=== PATIENT | male | born 1955 | race Caucasian/White ===

== ENCOUNTER 2020-01-15 12:33 | Emergency (ER) | payer MEDICARE, MEDICAID ==
[~2020-01-15] VITALS: Ht 175.3 cm; Wt 81.8 kg
[~2020-01-15 12:33] MED LIST: CLON-528 PO; LISI-600 PO; METH-603 PO; MULT-1085 PO; NITR0.4T51 SL; NO HOME MEDS; VITA1CAP62 PO
[2020-01-15] MEDS ORDERED: ALBU8.5H8 IH (13:34)
[2020-01-15] MEDS ORDERED: AZIT250T83 PO (13:34)
[2020-01-15] MEDS ORDERED: PRED20TA PO (13:34)
[2020-01-15 14:01] VITALS: BP 121/64
== END 2020-01-15 14:03 | disposition home or self-care (01) ==
LOC: ER 12:33
DX: J20.9 Acute bronchitis, unspecified (principal); G89.29 Other chronic pain; F41.9 Anxiety disorder, unspecified; Z87.891 Personal history of nicotine dependence; Z88.0 Allergy status to penicillin; Z79.2 Long term (current) use of antibiotics; Z79.899 Other long term (current) drug therapy
CPT/HCPCS: 99283

== ENCOUNTER 2020-02-14 23:02 | Emergency (ER) | payer MEDICARE, MEDICAID ==
[~2020-02-14] VITALS: Ht 175.3 cm; Wt 81.8 kg
[~2020-02-14 23:02] MED LIST changes: +AZI25OT PO; -CLON-528 PO; +FURO-150 PO; +METH4TAB81 PO; -NITR0.4T51 SL; -NO HOME MEDS; -VITA1CAP62 PO; +folic acid tablet PO; +thiamine tablet PO
[2020-02-14 23:04] VITALS: BP 160/87
[2020-02-14] MEDS ORDERED: ketorolac tromethamine 15mg/ml inj. IM ONE (23:50)
[2020-02-14] MEDS ORDERED: orphenadrine citrate 60mg/2ml inj. IM ONE (23:50)
[2020-02-14] MEDS ORDERED: IBUP-1984 PO (23:59)
[2020-02-14] MEDS ORDERED: CYCL-1 PO (23:59)
== END 2020-02-15 00:10 | disposition home or self-care (01) ==
LOC: ER 23:02
DX: G89.29 Other chronic pain (principal); M54.9 Dorsalgia, unspecified; M54.2 Cervicalgia; I10 Essential (primary) hypertension; F41.9 Anxiety disorder, unspecified; Z98.890 Other specified postprocedural states; Z59.0 Homelessness; Z88.0 Allergy status to penicillin; Z79.2 Long term (current) use of antibiotics; Z79.899 Other long term (current) drug therapy
CPT/HCPCS: 96372; 99284; J1885; J2360

== ENCOUNTER 2020-06-17 21:12 | Inpatient (IN) | payer MEDICARE, MEDICAID ==
[~2020-06-17] VITALS: Ht 172.7 cm; Wt 101.9 kg
[~2020-06-17 21:12] MED LIST changes: +CYCL-1 PO; +calcium chloride 100 MG/1 ML inj IV ONE; +epiNEPHrine 0.1mg/ml 10ml syringe ONE; +etomidate 2mg/ml inj. ONE; +rocuronium 10mg/ml inj IV ONE; +sodium bicarbonate (8.4%) 1 mEq/ml syringe ONE
[2020-06-17] MEDS ORDERED: ondansetron/PF 4mg/2ml inj IV ONE (21:50)
[2020-06-17] MEDS ORDERED: morphine 4 MG/ML inj SYRINge IV ONE ×2 (21:50→22:25)
[2020-06-17 22:10] LABS: BASOPHILS % (AUTO) 0.1 % (0-1); EOSINOPHILS % (AUTO) 0 % (0-6); HEMATOCRIT 44.9 % (42.0-52.0); HEMOGLOBIN 14.9 g/dl (14.0-17.9); LYMPHOCYTES # (AUTO) 0.7 X10'3 (1.1-4.8); LYMPHOCYTES % (AUTO) 2.5 % (21-51); MEAN CORPUSCULAR HEMOGLOBIN 33.5 PG (27.0-31.0); MEAN CORPUSCULAR HGB CONC 33.3 g/dL (33.0-36.5); MEAN CORPUSCULAR VOLUME 100.8 FL (78-98); MEAN PLATELET VOLUME 8.6 FL (7.4-10.4); MONOCYTES # (AUTO) 1.4 X10'3 (0-0.9); MONOCYTES % (AUTO) 5.6 % (2-12); NEUTROPHILS # (AUTO) 23.6 X10'3 (1.8-7.7); NEUTROPHILS % (AUTO) 91.8 % (42-75); PLATELET COUNT 225 X10'3 (140-440); RED BLOOD COUNT 4.46 X10'6 (4.70-6.10); RED CELL DISTRIBUTION WIDTH 14.5 % (11.5-14.5)
[2020-06-17 22:12] LABS: WHITE BLOOD COUNT 25.7 X10'3 (4.5-11.0)
[2020-06-17] MEDS ORDERED: CefTRIAXone/D5W-Rocephin 1gm 50 ML IV ONE (22:25)
[2020-06-17] MEDS ORDERED: normal saline 1000ML IV soln IVB ONE (22:25)
[2020-06-17] MEDS ORDERED: vancomycin/NS 1 GM ADD-VANTAGE 250 ML IV ONE (22:25)
[2020-06-17 22:26] LABS: ALANINE AMINOTRANSFERASE 22 U/L (12-78); ALBUMIN/GLOBULIN RATIO 0.6 (1.1-1.5); ALKALINE PHOSPHATASE 94 IU/L (46-116); ANION GAP 8 (8-16); ASPARTATE AMINO TRANSFERASE 28 U/L (10-37); BILIRUBIN,TOTAL 1.3 MG/DL (0.1-1.0); BLOOD UREA NITROGEN 18 MG/DL (7-18); BUN/CREATININE RATIO 13.2 (5.4-32.0); CALCIUM 9.3 MG/DL (8.5-10.1); CHLORIDE 89 MMOL/L (99-107); CREATININE 1.36 MG/DL (0.60-1.10); GLUCOSE 104 MG/DL (70-104); POTASSIUM 3.7 MMOL/L (3.5-5.1); SODIUM 127 MMOL/L (135-145); TOTAL CARBON DIOXIDE 30.5 MMOL/L (24-32); TOTAL PROTEIN 7.9 G/DL (6.4-8.2); eGFR 52 ML/MIN
[2020-06-17 22:42] LABS: TOTAL CELLS COUNTED 100
[2020-06-17 22:43] LABS: LIPASE 680 U/L (73-393); PLATELET ESTIMATE NORMAL
[2020-06-17] MEDS ORDERED: fentaNYL/PF 50MCG/1 ML 2ML syringe IV ONE (23:10)
--- NOTE | 2020-06-17 23:23 | NUR ---
PT REMAINS IN SEVERE PAIN, JUST GIVEN FENTANYL 100 MCG IV.
--- NOTE | 2020-06-17 23:42 | NUR ---
Pt stood at bedside to attempt to void and unsuccesful.
[2020-06-18] VITALS (8 sets, daily range): BP systolic 152–188; BP diastolic 90–118
[2020-06-18] MEDS ORDERED: HYDROmorphone 1 mg/ml syringe IV PRN
[2020-06-18] MEDS ORDERED: HYDROmorphone inj. 0.5 MG/0.5 ML DISP.SYRIN IV PRN
[2020-06-18] MEDS ORDERED: potassium Cl 20 mEq SR tablet PO PRN
[2020-06-18] MEDS ORDERED: mag hydrox/Alum hydrox/simeth 30ml oral suspension PO PRN
[2020-06-18] MEDS ORDERED: magnesium 2GM in 50ml NS 50 ML IV PRN
[2020-06-18] MEDS ORDERED: acetaminophen 325mg tablet PO PRN ×2
[2020-06-18] MEDS ORDERED: magnesium 4gm in 100ml NS 100 ML IV PRN
[2020-06-18] MEDS ORDERED: magnesium hydroxide 30ml (MOM) UD suspension PO PRN
[2020-06-18] MEDS ORDERED: metoclopramide 5 mg/ml inj IV PRN
[2020-06-18] MEDS ORDERED: potassium CL 10mEq/100ml bag 100 ML IV PRN ×2
[2020-06-18] MEDS ORDERED: magnesium Cl slow-release 64mg tablet PO PRN
[2020-06-18] MEDS ORDERED: HYDROcodone/acetaminophen 10/325mg tab PO PRN
[2020-06-18] MEDS ORDERED: bisacodyl 10mg suppository rectal RC PRN
[2020-06-18] MEDS ORDERED: HYDROcodone/acetaminophen 5mg/325mg tablet PO PRN
[2020-06-18] MEDS ORDERED: METH5TAB PO (00:55)
[2020-06-18] MEDS ORDERED: FLO0.4C PO (00:55)
[2020-06-18] MEDS ORDERED: [UNRECOGNIZED DRUG - OTHER] IV ONE (01:00)
[2020-06-18] MEDS ORDERED: VANCOMYCIN IV ONE (01:00)
[2020-06-18] MEDS ORDERED: SODIUM CHLORIDE IV ONE (01:00)
--- NOTE | 2020-06-18 01:07 | NUR ---
Received report from Shira CHISHOLM from the ED. Patient arrived on unit in a wheel chair, saline locked, room air, a/o, vss, no signs of distress will continue to monitor
[2020-06-18 01:20] LABS: HEMOGLOBIN A1C 5.6 % (4.5-6.2)
[2020-06-18] MEDS ORDERED: CADD PCA waste documentation MC PRN (01:50)
[2020-06-18] MEDS ORDERED: naloxone 0.4 mg/ml inj IV PRN (01:50)
[2020-06-18] MEDS: normal saline 1000ml 1,000 ML IV SCH ×3 (01:53→21:26)
[2020-06-18] MEDS: HYDROmorphone/NS 1 mg/ml CADD 50 ML IV SCH ×12 (02:37→23:00)
[2020-06-18 05:58] LABS: BASOPHILS % (AUTO) 0.1 % (0-1); EOSINOPHILS % (AUTO) 0 % (0-6); HEMATOCRIT 40.5 % (42.0-52.0); HEMOGLOBIN 13.4 g/dl (14.0-17.9); LYMPHOCYTES # (AUTO) 0.6 X10'3 (1.1-4.8); LYMPHOCYTES % (AUTO) 2.9 % (21-51); MEAN CORPUSCULAR HEMOGLOBIN 33.9 PG (27.0-31.0); MEAN CORPUSCULAR HGB CONC 33.2 g/dL (33.0-36.5); MEAN PLATELET VOLUME 9.2 FL (7.4-10.4); MONOCYTES # (AUTO) 1.6 X10'3 (0-0.9); NEUTROPHILS # (AUTO) 20.1 X10'3 (1.8-7.7); PLATELET COUNT 170 X10'3 (140-440); RED BLOOD COUNT 3.97 X10'6 (4.70-6.10); RED CELL DISTRIBUTION WIDTH 14.9 % (11.5-14.5); WHITE BLOOD COUNT 22.4 X10'3 (4.5-11.0)
[2020-06-18 06:07] LABS: ALANINE AMINOTRANSFERASE 16 U/L (12-78); ALBUMIN 2.5 G/DL (3.4-5.0); ALBUMIN/GLOBULIN RATIO 0.6 (1.1-1.5); ALKALINE PHOSPHATASE 77 IU/L (46-116); ANION GAP 5 (8-16); ASPARTATE AMINO TRANSFERASE 23 U/L (10-37); BILIRUBIN,TOTAL 0.8 MG/DL (0.1-1.0); BLOOD UREA NITROGEN 16 MG/DL (7-18); BUN/CREATININE RATIO 15.5 (5.4-32.0); CALCIUM 8.1 MG/DL (8.5-10.1); CHLORIDE 98 MMOL/L (99-107); CREATININE 1.03 MG/DL (0.60-1.10); GLUCOSE 68 MG/DL (70-104); POTASSIUM 4.5 MMOL/L (3.5-5.1); SODIUM 133 MMOL/L (135-145); TOTAL CARBON DIOXIDE 29.8 MMOL/L (24-32); TOTAL PROTEIN 6.5 G/DL (6.4-8.2); eGFR 72 ML/MIN
[2020-06-18 06:08] LABS: CHOL/HDL RATIO 1.5 (0.00-4.99); CHOLESTEROL 133 MG/DL (0-200); HDL CHOLESTEROL 86 MG/DL (35-60); LDL CHOLESTEROL 31 MG/DL (50-100); MAGNESIUM 1.6 MG/DL (1.5-2.4); PHOSPHORUS 2.7 MG/DL (2.3-4.5); TRIGLYCERIDES 31 MG/DL (20-135)
--- NOTE | 2020-06-18 06:41 | NUR ---
Patient in room [facility] 346. I have received report from PHAN Mccullough and had the opportunity to ask questions and assume patient care.
--- NOTE | 2020-06-18 06:43 | NUR ---
Problems reprioritized. Patient report given, questions answered & plan of care reviewed with Libby CHISHOLM.
[2020-06-18] MEDS: lisinopril 20mg tablet PO SCH (07:21)
[2020-06-18] MEDS: tamsulosin 0.4mg capsule PO SCH (07:21)
[2020-06-18] MEDS: methadone 10mg tablet PO SCH ×2 (07:22→22:21)
[2020-06-18] MEDS: CefTRIAXone/D5W-Rocephin 1gm 50 ML IV SCH (07:25)
[2020-06-18] MEDS: ondansetron/PF 4mg/2ml inj IV PRN (07:30)
[2020-06-18] MEDS: enoxaparin 40mg/0.4ml syringe SUBCUT SCH (07:33)
[2020-06-18] MEDS ORDERED: methadone 10mg tablet PO SCH (08:00)
[2020-06-18] MEDS: K and/or MAG REPLACEMENT MC SCH ×2 (08:00→20:00)
[2020-06-18] MEDS: cloNIDine 0.1 mg tablet PO PRN ×2 (10:09→23:49)
[2020-06-18] MEDS: VANCOmycin 1250MG/NS 250ml Bag 250 ML IV SCH ×2 (10:10→21:34)
--- NOTE | 2020-06-18 10:40 | NUR ---
O700 BP 188/115 scheduled Lisinopril given. Re-check at 0940 it was 180/112. Dr Babcock informed, new order for Clonidine PO PRN, medication given as ordered. will continue to monitor.
[2020-06-18] MEDS ORDERED: VANCOmycin 1250MG/NS 250ml Bag 250 ML IV SCH (14:00)
--- NOTE | 2020-06-18 14:25 | NUR ---
TPN consult: Pt admit with acute pancreatitis. Per H&P pt quit alcohol use 1 month ago and with no hx pancreatitis. Lipase 680 on admit. Notified that alternative nutrition is not indicated unless expected prolonged NPO status (greater than 7 days). Will continue to follow. Addendum: 06/18/20 at [address] Amended: Links added.
--- NOTE | 2020-06-18 14:38 | NUR ---
F/u: Received TC from MD, pt to remain NPO and no TPN at this time per MD. Will continue to follow. Addendum: 06/18/20 at [address] Amended: Links added.
[2020-06-18] MEDS ORDERED: cloNIDine 0.1 mg tablet PO ONE (14:55)
--- NOTE | 2020-06-18 18:39 | NUR ---
Problems reprioritized. Patient report given, questions answered & plan of care reviewed with PHAN Iraheta.
[2020-06-18] MEDS: lactobacillus rhamnosus 10,000 MMU CELLS/CAPSULE PO SCH (21:25)
--- NOTE | 2020-06-18 22:26 | NUR ---
Patient methadone change from 130mg BID to DAILY. Patient states he takes it once a day only. Dose @1999 not given. Patient received it in the morning. Dr. Camejo notified and orders to changed it to daily.
[2020-06-18] MEDS: temazepam 15mg capsule PO PRN (23:49)
[2020-06-19] VITALS (7 sets, daily range): BP systolic 134–180; BP diastolic 93–104
[2020-06-19] MEDS: HYDROmorphone/NS 1 mg/ml CADD 50 ML IV SCH ×12 (01:00→23:00)
[2020-06-19] MEDS: normal saline 1000ml 1,000 ML IV SCH ×4 (02:03→19:19)
[2020-06-19 05:38] LABS: BASOPHILS % (AUTO) 0.1 % (0-1); EOSINOPHILS % (AUTO) 0 % (0-6); HEMATOCRIT 35.9 % (42.0-52.0); HEMOGLOBIN 11.7 g/dl (14.0-17.9); LYMPHOCYTES # (AUTO) 0.6 X10'3 (1.1-4.8); LYMPHOCYTES % (AUTO) 3.6 % (21-51); MEAN CORPUSCULAR HEMOGLOBIN 33.5 PG (27.0-31.0); MEAN CORPUSCULAR HGB CONC 32.7 g/dL (33.0-36.5); MEAN CORPUSCULAR VOLUME 102.4 FL (78-98); MEAN PLATELET VOLUME 8.9 FL (7.4-10.4); MONOCYTES # (AUTO) 1.1 X10'3 (0-0.9); MONOCYTES % (AUTO) 6.9 % (2-12); NEUTROPHILS % (AUTO) 89.4 % (42-75); PLATELET COUNT 162 X10'3 (140-440); RED CELL DISTRIBUTION WIDTH 14.5 % (11.5-14.5); WHITE BLOOD COUNT 15.7 X10'3 (4.5-11.0)
[2020-06-19 05:54] LABS: ALANINE AMINOTRANSFERASE 14 U/L (12-78); ALBUMIN/GLOBULIN RATIO 0.5 (1.1-1.5); ALKALINE PHOSPHATASE 69 IU/L (46-116); ANION GAP 7 (8-16); ASPARTATE AMINO TRANSFERASE 18 U/L (10-37); BILIRUBIN,TOTAL 0.6 MG/DL (0.1-1.0); CALCIUM 7.9 MG/DL (8.5-10.1); CHLORIDE 99 MMOL/L (99-107); CREATININE 1.05 MG/DL (0.60-1.10); GLUCOSE 51 MG/DL (70-104); MAGNESIUM 1.9 MG/DL (1.5-2.4); PHOSPHORUS 2.6 MG/DL (2.3-4.5); POTASSIUM 3.7 MMOL/L (3.5-5.1); SODIUM 133 MMOL/L (135-145); TOTAL CARBON DIOXIDE 27.5 MMOL/L (24-32); TOTAL PROTEIN 6.1 G/DL (6.4-8.2); eGFR 71 ML/MIN
[2020-06-19 06:02] LABS: BLOOD UREA NITROGEN 16 MG/DL (7-18); BUN/CREATININE RATIO 15.2 (5.4-32.0)
--- NOTE | 2020-06-19 06:51 | NUR ---
Patient in room [facility] 346. I have received report from PHAN LINDO and had the opportunity to ask questions and assume patient care.
[2020-06-19] MEDS: tamsulosin 0.4mg capsule PO SCH (07:13)
[2020-06-19] MEDS: methadone 10mg tablet PO SCH (07:14)
[2020-06-19] MEDS: lactobacillus rhamnosus 10,000 MMU CELLS/CAPSULE PO SCH ×2 (07:14→19:16)
[2020-06-19] MEDS: enoxaparin 40mg/0.4ml syringe SUBCUT SCH (07:15)
[2020-06-19] MEDS: amLODIPine 5mg tablet PO SCH (07:15)
[2020-06-19] MEDS: lisinopril 20mg tablet PO SCH (07:15)
[2020-06-19] MEDS: CefTRIAXone/D5W-Rocephin 1gm 50 ML IV SCH (07:20)
[2020-06-19] MEDS: K and/or MAG REPLACEMENT MC SCH ×2 (07:27→18:58)
[2020-06-19] MEDS ORDERED: VANCOMYCIN LEVEL IV ONE (09:30)
[2020-06-19] MEDS: VANCOmycin 1250MG/NS 250ml Bag 250 ML IV SCH (10:23)
--- NOTE | 2020-06-19 18:34 | NUR ---
Patient in room [facility] 346. I have received report from PHAN Gutierrez and had the opportunity to ask questions and assume patient care.
[2020-06-19] MEDS: cloNIDine 0.1 mg tablet PO PRN (19:16)
[2020-06-19] MEDS: VANCOMYCIN 1,500MG inj. 1,500 MG in normal saline 250ml IV soln 300 ML IV SCH (21:40)
--- NOTE | 2020-06-19 21:58 | NUR ---
PAGER ID: [phone] 346I Eddie Armstrong acute pancreatitis, BP 164/102, gave Clonidine 0.1 mg 2 hrs ago, BP check now 162/100. [place], surg [id number]
[2020-06-19] MEDS: hydrALAZINE 20mg/ml inj. IV PRN (22:16)
[2020-06-20] VITALS (7 sets, daily range): BP systolic 142–188; BP diastolic 92–114
[2020-06-20] MEDS: temazepam 15mg capsule PO PRN (00:17)
[2020-06-20] MEDS: HYDROmorphone/NS 1 mg/ml CADD 50 ML IV SCH ×8 (01:00→15:00)
[2020-06-20] MEDS: normal saline 1000ml 1,000 ML IV SCH ×3 (03:57→20:34)
[2020-06-20 04:59] LABS: BASOPHILS % (AUTO) 0.3 % (0-1); EOSINOPHILS % (AUTO) 0.1 % (0-6); HEMATOCRIT 33.6 % (42.0-52.0); HEMOGLOBIN 11.2 g/dl (14.0-17.9); LYMPHOCYTES # (AUTO) 0.4 X10'3 (1.1-4.8); LYMPHOCYTES % (AUTO) 2.9 % (21-51); MEAN CORPUSCULAR HEMOGLOBIN 34.3 PG (27.0-31.0); MEAN CORPUSCULAR HGB CONC 33.4 g/dL (33.0-36.5); MEAN CORPUSCULAR VOLUME 102.6 FL (78-98); MEAN PLATELET VOLUME 8.5 FL (7.4-10.4); MONOCYTES # (AUTO) 0.9 X10'3 (0-0.9); MONOCYTES % (AUTO) 6.7 % (2-12); NEUTROPHILS # (AUTO) 11.9 X10'3 (1.8-7.7); PLATELET COUNT 165 X10'3 (140-440); RED BLOOD COUNT 3.28 X10'6 (4.70-6.10); RED CELL DISTRIBUTION WIDTH 14.6 % (11.5-14.5); WHITE BLOOD COUNT 13.2 X10'3 (4.5-11.0)
[2020-06-20 05:06] LABS: ALANINE AMINOTRANSFERASE 11 U/L (12-78); ALBUMIN 1.9 G/DL (3.4-5.0); ALBUMIN/GLOBULIN RATIO 0.5 (1.1-1.5); ALKALINE PHOSPHATASE 93 IU/L (46-116); ANION GAP 10 (8-16); ASPARTATE AMINO TRANSFERASE 18 U/L (10-37); BILIRUBIN,TOTAL 0.5 MG/DL (0.1-1.0); BLOOD UREA NITROGEN 14 MG/DL (7-18); BUN/CREATININE RATIO 16.1 (5.4-32.0); CALCIUM 8.1 MG/DL (8.5-10.1); CHLORIDE 100 MMOL/L (99-107); CREATININE 0.87 MG/DL (0.60-1.10); GLUCOSE 59 MG/DL (70-104); MAGNESIUM 1.9 MG/DL (1.5-2.4); PHOSPHORUS 2.1 MG/DL (2.3-4.5); POTASSIUM 3.4 MMOL/L (3.5-5.1); SODIUM 133 MMOL/L (135-145); TOTAL CARBON DIOXIDE 23.3 MMOL/L (24-32); TOTAL PROTEIN 5.9 G/DL (6.4-8.2); eGFR 88 ML/MIN
--- NOTE | 2020-06-20 06:20 | NUR ---
Patient in room [facility] 346. I have received report from PHAN Arnold and had the opportunity to ask questions and assume patient care.
--- NOTE | 2020-06-20 06:43 | NUR ---
Problems reprioritized. Patient report given, questions answered & plan of care reviewed with PHAN Dixon.
[2020-06-20] MEDS: K and/or MAG REPLACEMENT MC SCH ×2 (07:35→19:02)
[2020-06-20] MEDS: lactobacillus rhamnosus 10,000 MMU CELLS/CAPSULE PO SCH ×2 (08:25→19:16)
[2020-06-20] MEDS: CefTRIAXone/D5W-Rocephin 1gm 50 ML IV SCH (08:25)
[2020-06-20] MEDS: tamsulosin 0.4mg capsule PO SCH (08:26)
[2020-06-20] MEDS: amLODIPine 5mg tablet PO SCH (08:26)
[2020-06-20] MEDS: lisinopril 20mg tablet PO SCH (08:26)
[2020-06-20] MEDS: potassium Cl 20 mEq SR tablet PO PRN ×3 (08:26→16:30)
[2020-06-20] MEDS: methadone 10mg tablet PO SCH (08:27)
[2020-06-20] MEDS: enoxaparin 40mg/0.4ml syringe SUBCUT SCH (08:27)
[2020-06-20 09:48] LABS: LIPASE < 50 U/L (73-393)
[2020-06-20] MEDS: VANCOMYCIN 1,500MG inj. 1,500 MG in normal saline 250ml IV soln 300 ML IV SCH ×2 (10:32→21:24)
[2020-06-20] MEDS ORDERED: sodium phosphate inj. 15 MMOL in dextrose 5%-water 250 ML IV ONE (11:15)
[2020-06-20] MEDS: hydrALAZINE 20mg/ml inj. IV PRN ×2 (12:05→19:15)
[2020-06-20] MEDS: cloNIDine 0.1 mg tablet PO PRN (12:05)
--- NOTE | 2020-06-20 15:30 | NUR ---
Dr Babcock notified BP remains elevated after hydralazine & clonidine given @ 1205 (Both RX'd PRN).
[2020-06-20] MEDS: cloNIDine 0.1 mg tablet PO SCH ×2 (16:26→23:06)
--- NOTE | 2020-06-20 18:10 | NUR ---
Problems reprioritized. Patient report given, questions answered & plan of care reviewed with PHAN Arnold.
--- NOTE | 2020-06-20 18:40 | NUR ---
Patient in room [facility] 346. I have received report from PHAN Dixon and had the opportunity to ask questions and assume patient care.
[2020-06-21] VITALS (8 sets, daily range): BP systolic 138–195; BP diastolic 98–112
--- NOTE | 2020-06-21 00:18 | NUR ---
PAGER ID: [phone] MESSAGE: Eddie Armstrong, Acute pancreatitis. Clonidine 0.1mg Q8H given and Hydralazine 10mg PRN given as well. BP 184/112. Not due yet for PRN. [facility], [id number]
[2020-06-21] MEDS ORDERED: oxyCODONE IR 5mg (immed. release) tablet PO ONE (00:20)
[2020-06-21] MEDS: temazepam 15mg capsule PO PRN (00:29)
--- NOTE | 2020-06-21 06:05 | NUR ---
Patient in room [facility] 346. I have received report from PHAN Arnold and had the opportunity to ask questions and assume patient care.
[2020-06-21] MEDS: normal saline 1000ml 1,000 ML IV SCH ×2 (06:20→17:49)
--- NOTE | 2020-06-21 06:32 | NUR ---
Problems reprioritized. Patient report given, questions answered & plan of care reviewed with PHAN Dixon.
[2020-06-21 07:12] LABS: BASOPHILS % (AUTO) 0.1 % (0-1); EOSINOPHILS % (AUTO) 0.2 % (0-6); LYMPHOCYTES # (AUTO) 0.4 X10'3 (1.1-4.8); NEUTROPHILS # (AUTO) 10.6 X10'3 (1.8-7.7); RED BLOOD COUNT 3.38 X10'6 (4.70-6.10); WHITE BLOOD COUNT 11.9 X10'3 (4.5-11.0)
[2020-06-21 07:14] LABS: HEMATOCRIT 34.4 % (42.0-52.0); HEMOGLOBIN 11.5 g/dl (14.0-17.9); LYMPHOCYTES % (AUTO) 3.6 % (21-51); MEAN CORPUSCULAR HGB CONC 33.4 g/dL (33.0-36.5); MEAN CORPUSCULAR VOLUME 101.6 FL (78-98); MEAN PLATELET VOLUME 8.2 FL (7.4-10.4); MONOCYTES # (AUTO) 0.9 X10'3 (0-0.9); MONOCYTES % (AUTO) 7.7 % (2-12); NEUTROPHILS % (AUTO) 88.4 % (42-75); PLATELET COUNT 197 X10'3 (140-440); RED CELL DISTRIBUTION WIDTH 14.1 % (11.5-14.5)
[2020-06-21 07:23] LABS: ALANINE AMINOTRANSFERASE 21 U/L (12-78); ALBUMIN/GLOBULIN RATIO 0.5 (1.1-1.5); ALKALINE PHOSPHATASE 71 IU/L (46-116); ANION GAP 8 (8-16); BILIRUBIN,TOTAL 0.7 MG/DL (0.1-1.0); BLOOD UREA NITROGEN 9 MG/DL (7-18); BUN/CREATININE RATIO 11.7 (5.4-32.0); CALCIUM 8.1 MG/DL (8.5-10.1); CHLORIDE 97 MMOL/L (99-107); CREATININE 0.77 MG/DL (0.60-1.10); GLUCOSE 84 MG/DL (70-104); MAGNESIUM 1.8 MG/DL (1.5-2.4); SODIUM 133 MMOL/L (135-145); TOTAL CARBON DIOXIDE 27.8 MMOL/L (24-32); eGFR > 90 ML/MIN
[2020-06-21 07:37] LABS: ANISOCYTOSIS 1+; PLATELET ESTIMATE NORMAL; TOTAL CELLS COUNTED 100
[2020-06-21] MEDS: methadone 10mg tablet PO SCH (07:46)
[2020-06-21] MEDS: CefTRIAXone/D5W-Rocephin 1gm 50 ML IV SCH (07:46)
[2020-06-21] MEDS: tamsulosin 0.4mg capsule PO SCH (07:46)
[2020-06-21] MEDS: cloNIDine 0.1 mg tablet PO SCH ×2 (07:46→16:13)
[2020-06-21] MEDS: lactobacillus rhamnosus 10,000 MMU CELLS/CAPSULE PO SCH ×2 (07:47→19:41)
[2020-06-21] MEDS: amLODIPine 5mg tablet PO SCH (07:47)
[2020-06-21 07:48] LABS: ASPARTATE AMINO TRANSFERASE 40 U/L (10-37); PHOSPHORUS 1.8 MG/DL (2.3-4.5)
[2020-06-21] MEDS: enoxaparin 40mg/0.4ml syringe SUBCUT SCH (07:48)
[2020-06-21 07:55] LABS: POTASSIUM 2.9 MMOL/L (3.5-5.1)
[2020-06-21] MEDS ORDERED: lisinopril 10 MG tablet PO SCH (08:00)
[2020-06-21] MEDS: K and/or MAG REPLACEMENT MC SCH ×2 (08:02→19:35)
[2020-06-21] MEDS ORDERED: potassium CL 10mEq/100ml bag 100 ML IV PRN (08:05)
[2020-06-21] MEDS ORDERED: magnesium 4gm in 100ml NS 100 ML IV PRN (08:05)
[2020-06-21] MEDS ORDERED: magnesium 2GM in 50ml NS 50 ML IV PRN (08:05)
[2020-06-21] MEDS ORDERED: magnesium Cl slow-release 64mg tablet PO PRN (08:05)
[2020-06-21] MEDS: potassium Cl 20 mEq SR tablet PO PRN ×3 (08:11→16:13)
[2020-06-21] MEDS ORDERED: VANCOMYCIN LEVEL IV ONE (09:30)
[2020-06-21] MEDS: VANCOMYCIN 1,500MG inj. 1,500 MG in normal saline 250ml IV soln 300 ML IV SCH (09:55)
[2020-06-21] MEDS ORDERED: potassium phosphate inj 30 MMOL in normal saline 500ml IV soln 500 ML IV ONE (10:30)
--- NOTE | 2020-06-21 13:01 | NUR ---
Initial: Pt admit with acute pancreatitis. Per H&P pt quit alcohol use 1 month ago and with no hx pancreatitis. Lipase 680 on admit, down to <50 on 06/20. Patient's diet has been advanced to clear liquids, initially with 75% PO intake, down to 25% at breakfast today. Per MD notes pt endorsing a good appetite and denies N/V. LBM 06/21, receiving PRN bowel care. Will continue to follow closely and monitor need for nutrition intervention. Recommendations: 1) Advance to low fat diet as medically indicated 2) Monitor need for ONS 3) Bowel care PRN 4) Scaled weights per rx Addendum: 06/21/20 at [address] Amended: Links added.
[2020-06-21] MEDS: hydrALAZINE 20mg/ml inj. IV PRN (13:19)
[2020-06-21 14:47] LABS: CLARITY,URINE CLEAR (Clear); COLOR,URINE YELLOW (Yellow); GLUCOSE, URINE NEGATIVE (Neg); KETONES,URINE TRACE mg/dl (Neg); LEUKOCYTE ESTERASE ,URINE NEGATIVE (Neg); NITRITES, URINE NEGATIVE (Neg); OCCULT BLOOD,URINE NEGATIVE (Neg); PH,URINE 5.5 (4.8-8.0); PROTEIN,URINE NEGATIVE (Neg); UROBILINOGEN,URINE 0.2 E.U/dL (0.2-1.0)
[2020-06-21 14:52] LABS: UA COLLECTION TYPE NON-SPECIFIED
--- NOTE | 2020-06-21 18:20 | NUR ---
Problems reprioritized. Patient report given, questions answered & plan of care reviewed with PHAN Arnold.
--- NOTE | 2020-06-21 18:25 | NUR ---
Patient in room [facility] 346. I have received report from PHAN Dixon and had the opportunity to ask questions and assume patient care.
[2020-06-21] MEDS: ondansetron/PF 4mg/2ml inj IV PRN (19:38)
[2020-06-21] MEDS: VANCOmycin 1250MG/NS 250ml Bag 250 ML IV SCH (20:21)
[2020-06-21] MEDS ORDERED: LORazepam 2 mg/ml vial IV PRN (22:45)
[2020-06-21] MEDS ORDERED: LORazepam 1 MG tablet PO PRN (22:45)
[2020-06-21] MEDS ORDERED: thiamine inj. 100 MG in normal saline 100ml IV soln 100 ML IV ONE (22:45)
[2020-06-21] MEDS: diatr meglu/diatrizoate 30ml oral sol.-(3 dose) bottle PO SCH (23:13)
[2020-06-21] MEDS: propranolol 10mg tablet PO SCH (23:23)
--- NOTE | 2020-06-21 23:38 | NUR ---
PAGER ID: [phone] MESSAGE: Eddie Armstrong Acute pancreatitis. Pt gets methadone 130mg in AM. No other pain meds. Pt would like Oxycodone IR 10mg once. Pain 09/06. BP 171/97. [place], Surg [id number]
[2020-06-22] VITALS: BP 171/97
[2020-06-22] MEDS ORDERED: HYDROcodone/acetaminophen 5mg/325mg tablet PO ONE (00:55)
[2020-06-22] MEDS: temazepam 15mg capsule PO PRN (01:12)
[2020-06-22] MEDS: VANCOmycin 1250MG/NS 250ml Bag 250 ML IV SCH ×3 (02:52→17:31)
[2020-06-22 02:59] VITALS: BP 150/98
[2020-06-22] MEDS: normal saline 1000ml 1,000 ML IV SCH ×3 (03:23→17:34)
[2020-06-22 05:03] LABS: BASOPHILS % (AUTO) 0.1 % (0-1); EOSINOPHILS # (AUTO) 0.1 X10'3 (0-0.9); EOSINOPHILS % (AUTO) 0.5 % (0-6); HEMATOCRIT 35.9 % (42.0-52.0); LYMPHOCYTES # (AUTO) 0.5 X10'3 (1.1-4.8); LYMPHOCYTES % (AUTO) 4.6 % (21-51); MEAN CORPUSCULAR HEMOGLOBIN 33.8 PG (27.0-31.0); MEAN CORPUSCULAR HGB CONC 33.3 g/dL (33.0-36.5); MEAN CORPUSCULAR VOLUME 101.6 FL (78-98); MEAN PLATELET VOLUME 8.1 FL (7.4-10.4); MONOCYTES % (AUTO) 8.9 % (2-12); NEUTROPHILS # (AUTO) 9.3 X10'3 (1.8-7.7); NEUTROPHILS % (AUTO) 85.9 % (42-75); PLATELET COUNT 237 X10'3 (140-440); RED BLOOD COUNT 3.54 X10'6 (4.70-6.10); RED CELL DISTRIBUTION WIDTH 14.5 % (11.5-14.5); WHITE BLOOD COUNT 10.9 X10'3 (4.5-11.0)
[2020-06-22 05:28] LABS: ALANINE AMINOTRANSFERASE 23 U/L (12-78); ALBUMIN 2.1 G/DL (3.4-5.0); ALBUMIN/GLOBULIN RATIO 0.5 (1.1-1.5); ALKALINE PHOSPHATASE 72 IU/L (46-116); ANION GAP 8 (8-16); ASPARTATE AMINO TRANSFERASE 27 U/L (10-37); BILIRUBIN,TOTAL 0.6 MG/DL (0.1-1.0); BLOOD UREA NITROGEN 8 MG/DL (7-18); BUN/CREATININE RATIO 10.7 (5.4-32.0); CALCIUM 8.3 MG/DL (8.5-10.1); CHLORIDE 98 MMOL/L (99-107); CREATININE 0.75 MG/DL (0.60-1.10); GLUCOSE 97 MG/DL (70-104); MAGNESIUM 1.9 MG/DL (1.5-2.4); PHOSPHORUS 2.8 MG/DL (2.3-4.5); POTASSIUM 3.4 MMOL/L (3.5-5.1); SODIUM 133 MMOL/L (135-145); TOTAL CARBON DIOXIDE 26.6 MMOL/L (24-32); TOTAL PROTEIN 6.4 G/DL (6.4-8.2); eGFR > 90 ML/MIN
[2020-06-22 05:38] LABS: ANISOCYTOSIS 1+; PLATELET ESTIMATE NORMAL; TOTAL CELLS COUNTED 100
[2020-06-22] MEDS: diatr meglu/diatrizoate 30ml oral sol.-(3 dose) bottle PO SCH ×2 (06:29→09:13)
[2020-06-22 06:30] VITALS: BP 176/117
--- NOTE | 2020-06-22 06:35 | NUR ---
Patient in room [facility] 347. I have received report from PHAN Arnold and had the opportunity to ask questions and assume patient care.
--- NOTE | 2020-06-22 06:50 | NUR ---
Problems reprioritized. Patient report given, questions answered & plan of care reviewed with PHAN Dixon.
[2020-06-22] MEDS: K and/or MAG REPLACEMENT MC SCH ×2 (07:10→20:00)
[2020-06-22] MEDS: tamsulosin 0.4mg capsule PO SCH (08:48)
[2020-06-22] MEDS: CefTRIAXone/D5W-Rocephin 1gm 50 ML IV SCH (08:48)
[2020-06-22] MEDS: cloNIDine 0.1 mg tablet PO SCH ×2 (08:49→22:34)
[2020-06-22] MEDS: multivitamins, therapeutics tablet PO SCH (08:49)
[2020-06-22] MEDS: propranolol 10mg tablet PO SCH ×2 (08:50→20:23)
[2020-06-22] MEDS: folic acid 1mg tablet PO SCH (08:50)
[2020-06-22] MEDS: thiamine 100mg tablet PO SCH (08:50)
[2020-06-22] MEDS: lactobacillus rhamnosus 10,000 MMU CELLS/CAPSULE PO SCH ×2 (08:50→20:23)
[2020-06-22] MEDS: amLODIPine 5mg tablet PO SCH (08:50)
[2020-06-22] MEDS: lisinopril 20mg tablet PO SCH (08:50)
[2020-06-22] MEDS: enoxaparin 40mg/0.4ml syringe SUBCUT SCH (08:51)
[2020-06-22] MEDS: methadone 10mg tablet PO SCH (08:51)
[2020-06-22] MEDS: potassium Cl 20 mEq SR tablet PO PRN ×3 (08:52→17:26)
[2020-06-22] MEDS ORDERED: iohexol 300mg/ml 100ml inj. ONE (10:25)
[2020-06-22 11:00] VITALS: BP 144/87
--- NOTE | 2020-06-22 13:00 | NUR ---
Attempted to insert 16fr NG tube x1 each nare. Unable to insert due to pain. Pt refused another try with 14fr NG tube. Dr Briceño notified.
[2020-06-22] MEDS: oxyCODONE IR 5mg (immed. release) tablet PO PRN ×2 (13:18→17:26)
[2020-06-22] MEDS: enoxaparin 30mg/0.3ml syringe SUBCUT SCH ×2 (13:19→20:21)
[2020-06-22] MEDS: enoxaparin 60mg/0.6ml syringe SUBCUT SCH ×2 (13:20→20:22)
[2020-06-22] MEDS ORDERED: VANCOMYCIN LEVEL IV ONE (17:30)
--- NOTE | 2020-06-22 18:00 | NUR ---
Patient in room [facility] 347. I have received report from Destiny CHISHOLM and had the opportunity to ask questions and assume patient care. Addendum: 06/22/20 at 1930 by Toña Boswell RN Amended: Links added.
[2020-06-22] MEDS: HYDROmorphone 1 mg/ml syringe IV PRN ×2 (18:03→18:40)
--- NOTE | 2020-06-22 18:30 | NUR ---
Dr Briceño paged again re: severe pain not improving despite oxycodone 5mg IR & dilaudid 1mg IV given. Order received for dilaudid 2mg IV Q4h & Dr Briceño states he will request Dr Delaney consults on pt.
[2020-06-22] MEDS ORDERED: CADD PCA waste documentation MC PRN (18:35)
[2020-06-22] MEDS ORDERED: HYDROmorphone/NS 1 mg/ml CADD 50 ML IV SCH (18:35)
[2020-06-22] MEDS ORDERED: naloxone 0.4 mg/ml inj IV PRN (18:35)
--- NOTE | 2020-06-22 18:40 | NUR ---
Dr Briceño called stating he is going to change the dilaudid to a protocol CADD/MACHINE CLEANER (But to still give the dilaudid 2mg IV now), that Dr Delaney is to see pt tomorrow & to see if pt will allow for the NG tube to be placed.
--- NOTE | 2020-06-22 18:40 | NUR ---
Per day shift nurse report pt. refused further repeat of NG placement after x 2 attempt. Addendum: 06/23/20 at 0044 by Toña Boswell RN Amended: Links added.
--- NOTE | 2020-06-22 18:45 | NUR ---
Informed pt of need for NG tube placement & pt states he agrees to allow noc shift RN to try to place a smaller sized (14fr) NG tube.
--- NOTE | 2020-06-22 18:50 | NUR ---
Problems reprioritized. Patient report given, questions answered & plan of care reviewed with PHAN Ding.
--- NOTE | 2020-06-22 19:21 | NUR ---
Pt. awake A & O at this time. C/o pain 08/07, pt. received dilaudid IVp at 1803 and 1840 by day shift RN. Waiting for pharmacy to deliver dilaudid via CADD pump as ordered. No c/o n/v at this time. Encouraged pt. to reposition as intervention for pain relief at the moment; pt. repositioned. pt. X- Destiny called and left the phone number for patient;phone numbered given to pt. Call light within reach and bed in low position. Encouraged pt. to call nurse with any need; pt. verbalized understanding. Addendum: 06/22/20 at 1930 by Toña Boswell RN Amended: Links added.
[2020-06-22 20:00] VITALS: BP 181/100
--- NOTE | 2020-06-22 20:00 | NUR ---
Pt. c/o left abdominal pain with no n/v at this time. Waiting for CADD pump from pharmacy; pt. repositioned as intervention. Will continue monitoring. Addendum: 06/23/20 at 0226 by Toña Boswell RN Amended: Links added.
--- NOTE | 2020-06-22 20:00 | NUR ---
Pt. with contiousa
--- NOTE | 2020-06-22 21:00 | NUR ---
Pain control in place via dilaudid CADD pump as ordered. Addendum: 06/23/20 at 0228 by Toña Boswell RN Amended: Links added.
--- NOTE | 2020-06-22 22:00 | NUR ---
Assisted pt. up on toilet. Addendum: 06/23/20 at 0230 by Toña Boswell RN Amended: Links added.
--- NOTE | 2020-06-22 22:05 | NUR ---
Assisted pt. to the bathroom with pt. Pt. reported voided and had a small loose stools. No c/o N/v at this at this time. Upon finishing using the bathroom, pt. appeared diaphoretic with no s/s of slurred speech or disorientation noted at this time. Pt's BS check revealed 138. Dilaudid CADD pump in place for pain management. Also, explained to pt. orders from the doctor for NG placement but pt. refused, stating, "the other nurse tried x 2 times today and it was uncomfortable and painful and I do not want that any more.charge nurse notified.
[2020-06-22 22:45] VITALS: BP 94/61
--- NOTE | 2020-06-22 23:45 | NUR ---
Approximately this hour was administering medication to another patient when charge nurse came and stated, "think your pt is crushing." Upon entering the pt's room, the pt. was laying in bed with non responsive. Assessed pt's carotid pulse, no pulse CPR started and YEAST TENDER alerted. CPR continued. 0005 pulse present announced by RR; pt. transported to [facility]. 0026 left voice message for Destiny pt's X- at [phone]. At 0120 message left for next of kin Monico Argueta. At 0120 pt's daughter called back was updated on pt's status. Addendum: 06/23/20 at 2 by Toña Boswell RN Amended: Links added.
[2020-06-23] VITALS (31 sets, daily range): BP systolic 74–134; BP diastolic 38–81
[2020-06-23] MEDS ORDERED: FENTANYL-0.9 % NACL/PF 100 ML IV PRN (00:14)
[2020-06-23 00:16] LABS: ABG BASE EXCESS -8.6 mmol/L (-2.0-2.0); ABG HCO3 18.4 mmol/L (22.0-26.0); ABG OXYGEN SATURATION 99.2 % (94-97); ABG PCO2 (T) 44.4 mmHg (35.0-48.0); ABG PO2 (T) 239.7 mmHg (75.0-100.0); FCOHb 0.2 % (0.0-3.9); FMetHb 0.3 % (0.0-1.5); FO2Hb 98.7 % (94-97); TOTAL HEMOGLOBIN 9.3 G/dl (14.0-18.0)
[2020-06-23 00:23] LABS: HEMOGLOBIN 8.5 g/dl (14.0-17.9); RED CELL DISTRIBUTION WIDTH 14.4 % (11.5-14.5)
[2020-06-23 00:24] LABS: HEMATOCRIT 25.6 % (42.0-52.0); MEAN CORPUSCULAR HEMOGLOBIN 33.6 PG (27.0-31.0); MEAN CORPUSCULAR HGB CONC 33.2 g/dL (33.0-36.5); MEAN PLATELET VOLUME 8.4 FL (7.4-10.4); PLATELET COUNT 254 X10'3 (140-440); RED BLOOD COUNT 2.53 X10'6 (4.70-6.10); WHITE BLOOD COUNT 21.1 X10'3 (4.5-11.0)
[2020-06-23 00:29] LABS: ALANINE AMINOTRANSFERASE 41 U/L (12-78); ALBUMIN 1.5 G/DL (3.4-5.0); ALBUMIN/GLOBULIN RATIO 0.6 (1.1-1.5); ALKALINE PHOSPHATASE 59 IU/L (46-116); ASPARTATE AMINO TRANSFERASE 61 U/L (10-37); BILIRUBIN,TOTAL 0.9 MG/DL (0.1-1.0); BLOOD UREA NITROGEN 10 MG/DL (7-18); BUN/CREATININE RATIO 8.5 (5.4-32.0); CALCIUM 11.2 MG/DL (8.5-10.1); CHLORIDE 118 MMOL/L (99-107); CREATININE 1.17 MG/DL (0.60-1.10); GLUCOSE 86 MG/DL (70-104); LIPASE 158 U/L (73-393); MAGNESIUM 1.9 MG/DL (1.5-2.4); PHOSPHORUS 6.6 MG/DL (2.3-4.5); POTASSIUM 4.8 MMOL/L (3.5-5.1); TOTAL PROTEIN 4.2 G/DL (6.4-8.2); eGFR 62 ML/MIN
[2020-06-23] MEDS ORDERED: LIDOcaine 2% 10ml TOPICAL JELLY (Urojet) TP ONE (00:35)
[2020-06-23 00:48] LABS: ANISOCYTOSIS 1+; PLATELET ESTIMATE NORMAL; POLYCHROMASIA FEW; TOTAL CELLS COUNTED 100
[2020-06-23 00:50] LABS: TROPONIN I < 0.04 NG/ML (0.0-0.05)
[2020-06-23 00:53] LABS: SODIUM 169 MMOL/L (135-145)
[2020-06-23 00:54] LABS: PARTIAL THROMBOPLASTIN TIME 24 SECONDS (22-32)
[2020-06-23 00:55] LABS: ANION GAP 1 (8-16); TOTAL CARBON DIOXIDE > 50 MMOL/L (24-32)
--- NOTE | 2020-06-23 01:00 | NUR ---
Patient in room CICU 2007. I have received report from supervisor multifocal lens and had the opportunity to ask questions and assume patient care. Pt in intubated, post CPR for PEA, cooling measures to be started.
[2020-06-23] MEDS ORDERED: DOBUTamine-DoBUTrex 500mg/D5W 250 ML IV PRN (01:25)
[2020-06-23] MEDS ORDERED: ipratropium/albuterol 3ml nebule NEB PRN (01:25)
[2020-06-23 01:26] LABS: ABG BASE EXCESS -7.6 mmol/L (-2.0-2.0); ABG HCO3 17.1 mmol/L (22.0-26.0); ABG OXYGEN SATURATION 97.5 % (94-97); ABG PCO2 (T) 29.1 mmHg (35.0-48.0); ABG PO2 (T) 103.5 mmHg (75.0-100.0); FCOHb 0.3 % (0.0-3.9); FMetHb 0.4 % (0.0-1.5); FO2Hb 96.8 % (94-97); PATIENT TEMPERATURE 35.7; PEEP 5 cm H2O; RESPIRATORY RATE 16 b/min; TIDAL VOLUME 500 mL; TOTAL HEMOGLOBIN 6.4 G/dl (14.0-18.0)
[2020-06-23 01:26] LABS: OXYGEN SATURATION (MIXED VEN) 35.7 % (60-80); PO2 MIXED VENOUS (TEMP COR) 24.7 mmHg (35-46)
[2020-06-23] MEDS: piperacillin/tazo 3.375gm/50ml 50 ML IV SCH ×4 (01:52→23:06)
--- NOTE | 2020-06-23 02:00 | NUR ---
Pt woke up, responding appropriately, GOMEZ. Labs being repeated. Chelita Benson [employer] at bedside for critical values. Family has been updated on pt's condition.
[2020-06-23] MEDS ORDERED: dextrose 50%-water 50ml dispensing syringe IV ONE ×2 (02:06→09:15)
[2020-06-23] MEDS ORDERED: dextrose 50%-water 50ml dispensing syringe IV PRN ×2 (02:20)
[2020-06-23] MEDS ORDERED: glucagon, human recombinant 1mg kit SUBCUT PRN (02:20)
[2020-06-23] MEDS ORDERED: dextrose ORAL solution 15 GM/59 ML bottle PO PRN ×2 (02:20)
[2020-06-23] MEDS: NORepinephrine 8mg/ 250ml NS 250 ML IV PRN ×8 (02:27→21:45)
[2020-06-23] MEDS: midazolam 100mg in NS 100ml 100 ML IV PRN ×2 (02:35→19:06)
[2020-06-23 02:55] LABS: CLARITY,URINE CLOUDY (Clear); COLOR,URINE YELLOW (Yellow); GLUCOSE, URINE NEGATIVE (Neg); KETONES,URINE 15 mg/dl (Neg); LEUKOCYTE ESTERASE ,URINE NEGATIVE (Neg); NITRITES, URINE NEGATIVE (Neg); OCCULT BLOOD,URINE TRACE-LYSED (Neg); PROTEIN,URINE TRACE mg/dl (Neg); UROBILINOGEN,URINE 0.2 E.U/dL (0.2-1.0)
[2020-06-23 02:56] LABS: MEAN CORPUSCULAR HEMOGLOBIN 33.1 PG (27.0-31.0); MEAN CORPUSCULAR HGB CONC 31.7 g/dL (33.0-36.5); MEAN CORPUSCULAR VOLUME 104.5 FL (78-98); MEAN PLATELET VOLUME 8.5 FL (7.4-10.4); PLATELET COUNT 191 X10'3 (140-440); RED BLOOD COUNT 1.79 X10'6 (4.70-6.10); RED CELL DISTRIBUTION WIDTH 14.5 % (11.5-14.5); WHITE BLOOD COUNT 17.3 X10'3 (4.5-11.0)
[2020-06-23 03:00] LABS: UA COLLECTION TYPE FOLEY CATH
[2020-06-23 03:01] LABS: AMORPHOUS URATES 2+; BACTERIA,URINE FEW /HPF (Neg); SQUAMOUS EPITHELIAL CELL,UR FEW /LPF (FEW); WBC,URINE 0-4 /HPF (0-4)
[2020-06-23 03:13] LABS: ALANINE AMINOTRANSFERASE 61 U/L (12-78); ALBUMIN 1.3 G/DL (3.4-5.0); ALBUMIN/GLOBULIN RATIO 0.5 (1.1-1.5); ALKALINE PHOSPHATASE 49 IU/L (46-116); ANION GAP 12 (8-16); ASPARTATE AMINO TRANSFERASE 101 U/L (10-37); BLOOD UREA NITROGEN 12 MG/DL (7-18); BUN/CREATININE RATIO 9.4 (5.4-32.0); CALCIUM 8.9 MG/DL (8.5-10.1); CHLORIDE 106 MMOL/L (99-107); CREATININE 1.27 MG/DL (0.60-1.10); GLUCOSE 64 MG/DL (70-104); POTASSIUM 5.9 MMOL/L (3.5-5.1); SODIUM 139 MMOL/L (135-145); TOTAL CARBON DIOXIDE 20.7 MMOL/L (24-32); TOTAL PROTEIN 3.8 G/DL (6.4-8.2); eGFR 57 ML/MIN
[2020-06-23 03:29] LABS: HEMATOCRIT 18.7 % (42.0-52.0); HEMOGLOBIN 5.9 g/dl (14.0-17.9)
--- NOTE | 2020-06-23 04:00 | NUR ---
Levophed at max dose, vasopressin started. 2 units PRBC to be given.
[2020-06-23] MEDS ORDERED: pantoprazole 40 MG vial IV ONE (04:10)
[2020-06-23] MEDS: vasopressin inj. 40 UNIT in normal saline 50ml IV soln 38 ML IV SCH ×2 (04:10→13:58)
[2020-06-23] MEDS ORDERED: epiNEPHrine inj 5 MG, calcium chloride inj. 1,000 MG in normal saline 250ml IV soln 235 ML IV PRN (04:10)
[2020-06-23] MEDS: pantoprazole 40MG/NS 100ML BAG 100 ML IV SCH ×4 (05:07→19:40)
[2020-06-23 05:10] LABS: ABG HCO3 13.1 mmol/L (22.0-26.0); ABG OXYGEN SATURATION 96.2 % (94-97); ABG PCO2 (T) 27.5 mmHg (35.0-48.0); ABG PO2 (T) 89.1 mmHg (75.0-100.0); FCOHb 0.3 % (0.0-3.9); FMetHb 0.2 % (0.0-1.5); FO2Hb 95.7 % (94-97); PATIENT TEMPERATURE 34.7; PEEP 5 cm H2O; RESPIRATORY RATE 16 b/min; TIDAL VOLUME 450 mL; TOTAL HEMOGLOBIN 7.9 G/dl (14.0-18.0)
--- NOTE | 2020-06-23 05:30 | NUR ---
Family memberDestiny, at bedside and updated.
--- NOTE | 2020-06-23 06:30 | NUR ---
Patient in room CICU 2007. I have received report from GIN and had the opportunity to ask questions and assume patient care.PT ON LEVOPHED @ 1 AND VASOPRESSIN @0.04, PRESSURES STABLE. #2 OF 2 ORDERED PRBC'S RUNNING INTO CL. NO SEDATION ON AT THIS TIME.
--- NOTE | 2020-06-23 06:35 | NUR ---
Problems reprioritized. Patient report given, questions answered & plan of care reviewed with Chanelle CHISHOLM. Second Unit PRBC running.
[2020-06-23] MEDS ORDERED: pantoprazole 40 MG vial IV SCH (08:00)
[2020-06-23] MEDS ORDERED: piperacillin/tazo 3.375gm/50ml 50 ML IV SCH (08:00)
[2020-06-23 08:01] LABS: OXYGEN SATURATION (MIXED VEN) 65.4 % (60-80); PO2 MIXED VENOUS (TEMP COR) 34.8 mmHg (35-46)
[2020-06-23 08:11] LABS: ALBUMIN 1.4 G/DL (3.4-5.0); ANION GAP 16 (8-16); BLOOD UREA NITROGEN 14 MG/DL (7-18); CALCIUM 7.8 MG/DL (8.5-10.1); CHLORIDE 106 MMOL/L (99-107); CREATININE 1.75 MG/DL (0.60-1.10); GLUCOSE 63 MG/DL (70-104); MAGNESIUM 1.8 MG/DL (1.5-2.4); POTASSIUM 5.7 MMOL/L (3.5-5.1); SODIUM 139 MMOL/L (135-145); TOTAL CARBON DIOXIDE 17.2 MMOL/L (24-32); eGFR 39 ML/MIN
[2020-06-23 08:25] LABS: CREATINE KINASE 329 U/L (39-308); PHOSPHORUS 7.3 MG/DL (2.3-4.5)
[2020-06-23 08:36] LABS: BASOPHILS % (AUTO) 0.2 % (0-1); EOSINOPHILS % (AUTO) 0.1 % (0-6); HEMATOCRIT 28.6 % (42.0-52.0); HEMOGLOBIN 9.3 g/dl (14.0-17.9); LYMPHOCYTES # (AUTO) 0.5 X10'3 (1.1-4.8); LYMPHOCYTES % (AUTO) 2.4 % (21-51); MEAN CORPUSCULAR HEMOGLOBIN 31.6 PG (27.0-31.0); MEAN CORPUSCULAR HGB CONC 32.4 g/dL (33.0-36.5); MEAN CORPUSCULAR VOLUME 97.7 FL (78-98); MEAN PLATELET VOLUME 8.7 FL (7.4-10.4); MONOCYTES # (AUTO) 0.9 X10'3 (0-0.9); MONOCYTES % (AUTO) 4.1 % (2-12); NEUTROPHILS # (AUTO) 20.2 X10'3 (1.8-7.7); NEUTROPHILS % (AUTO) 93.2 % (42-75); PLATELET COUNT 160 X10'3 (140-440); RED BLOOD COUNT 2.93 X10'6 (4.70-6.10); RED CELL DISTRIBUTION WIDTH 17.5 % (11.5-14.5); WHITE BLOOD COUNT 21.7 X10'3 (4.5-11.0)
[2020-06-23] MEDS ORDERED: furosemide 10 MG/1 ML 10ml inj IV ONE (08:55)
[2020-06-23 08:57] LABS: CREATINE KINASE 339 U/L (39-308); MAGNESIUM 1.7 MG/DL (1.5-2.4); PHOSPHORUS 6.9 MG/DL (2.3-4.5)
[2020-06-23 09:19] LABS: PARTIAL THROMBOPLASTIN TIME 42 SECONDS (22-32)
[2020-06-23] MEDS ORDERED: sodium phosphate inj. 30 MMOL in normal saline 250ml IV soln 250 ML IV PRN (09:25)
[2020-06-23] MEDS ORDERED: calcium chloride inj. 1,000 MG in normal saline 100ml IV soln 100 ML IV PRN (09:25)
[2020-06-23] MEDS ORDERED: magnesium 4gm in 100ml NS 100 ML IV PRN (09:25)
[2020-06-23] MEDS ORDERED: potassium Cl 20mEq/100mL bag 100 ML IV PRN (09:25)
[2020-06-23 09:33] LABS: ANISOCYTOSIS 1+; PLATELET ESTIMATE NORMAL; POLYCHROMASIA 1+; TOTAL CELLS COUNTED 100; TOXIC GRANULATION 1+
[2020-06-23 09:34] LABS: LARGE PLATELETS FEW
[2020-06-23] MEDS: lactobacillus rhamnosus 10,000 MMU CELLS/CAPSULE PO SCH ×2 (09:51→19:40)
[2020-06-23] MEDS: K and/or MAG REPLACEMENT MC SCH ×2 (09:51→19:41)
[2020-06-23] MEDS ORDERED: iohexol 300 MG/1 ML 50ml polymer ONE (09:57)
[2020-06-23] MEDS ORDERED: LIDOcaine 1%/PF 5ML 10 MG/ML VIAL ONE (11:49)
[2020-06-23] MEDS ORDERED: iohexol 300mg/ml 100ml inj. ONE ×2 (11:49→12:08)
[2020-06-23] MEDS ORDERED: heparin 1,000 UNITS/NS 500ml 500 ML ONE (11:50)
[2020-06-23] MEDS ORDERED: DEXTROSE 50% IV SCH (12:25)
[2020-06-23] MEDS ORDERED: WATER IV SCH (12:25)
[2020-06-23] MEDS ORDERED: heparin 1,000unit/ml 10ml vial 10 ML ONE (12:46)
[2020-06-23] MEDS: hydrocortisone sod succ/PF 100mg/2ml inj. IV SCH ×3 (13:48→19:40)
[2020-06-23 13:57] LABS: HEMATOCRIT 23.4 % (42.0-52.0); HEMOGLOBIN 7.8 g/dl (14.0-17.9); MEAN CORPUSCULAR HEMOGLOBIN 31.8 PG (27.0-31.0); MEAN CORPUSCULAR HGB CONC 33.3 g/dL (33.0-36.5); MEAN CORPUSCULAR VOLUME 95.6 FL (78-98); MEAN PLATELET VOLUME 9.1 FL (7.4-10.4); PLATELET COUNT 149 X10'3 (140-440); RED BLOOD COUNT 2.44 X10'6 (4.70-6.10); RED CELL DISTRIBUTION WIDTH 17.8 % (11.5-14.5); WHITE BLOOD COUNT 19.5 X10'3 (4.5-11.0)
[2020-06-23 14:05] LABS: ALBUMIN 1.5 G/DL (3.4-5.0); ANION GAP 9 (8-16); BLOOD UREA NITROGEN 21 MG/DL (7-18); BUN/CREATININE RATIO 11.5 (5.4-32.0); CALCIUM 7.5 MG/DL (8.5-10.1); CHLORIDE 106 MMOL/L (99-107); CREATININE 1.83 MG/DL (0.60-1.10); GLUCOSE 107 MG/DL (70-104); MAGNESIUM 1.7 MG/DL (1.5-2.4); POTASSIUM 4.4 MMOL/L (3.5-5.1); SODIUM 138 MMOL/L (135-145); TOTAL CARBON DIOXIDE 22.8 MMOL/L (24-32); eGFR 37 ML/MIN
[2020-06-23] MEDS: folic acid 1mg tablet PO SCH (14:05)
[2020-06-23] MEDS: multivitamins, therapeutics tablet PO SCH (14:05)
[2020-06-23] MEDS: amLODIPine 5mg tablet PO SCH (14:05)
[2020-06-23] MEDS: thiamine 100mg tablet PO SCH (14:05)
[2020-06-23] MEDS: propranolol 10mg tablet PO SCH ×2 (14:05→19:41)
[2020-06-23] MEDS: tamsulosin 0.4mg capsule PO SCH (14:05)
[2020-06-23] MEDS: cloNIDine 0.1 mg tablet PO SCH ×3 (14:05→19:50)
[2020-06-23] MEDS: lisinopril 20mg tablet PO SCH (14:06)
[2020-06-23] MEDS: normal saline 1000ml 1,000 ML IV SCH ×2 (14:06→19:23)
[2020-06-23] MEDS: HYDROmorphone 1 mg/ml syringe IV PRN ×4 (14:10→19:26)
[2020-06-23 14:29] LABS: PHOSPHORUS 6.1 MG/DL (2.3-4.5)
[2020-06-23 16:53] LABS: BASOPHILS % (AUTO) 0.2 % (0-1); EOSINOPHILS # (AUTO) 0.2 X10'3 (0-0.9); HEMATOCRIT 24.3 % (42.0-52.0); HEMOGLOBIN 8.1 g/dl (14.0-17.9); LYMPHOCYTES # (AUTO) 0.8 X10'3 (1.1-4.8); LYMPHOCYTES % (AUTO) 4.3 % (21-51); MEAN CORPUSCULAR HEMOGLOBIN 31.7 PG (27.0-31.0); MEAN CORPUSCULAR HGB CONC 33.2 g/dL (33.0-36.5); MEAN CORPUSCULAR VOLUME 95.6 FL (78-98); MEAN PLATELET VOLUME 9.5 FL (7.4-10.4); MONOCYTES # (AUTO) 0.3 X10'3 (0-0.9); MONOCYTES % (AUTO) 1.8 % (2-12); NEUTROPHILS # (AUTO) 17.1 X10'3 (1.8-7.7); NEUTROPHILS % (AUTO) 92.7 % (42-75); PLATELET COUNT 130 X10'3 (140-440); RED BLOOD COUNT 2.54 X10'6 (4.70-6.10); WHITE BLOOD COUNT 18.5 X10'3 (4.5-11.0)
[2020-06-23] MEDS: bicarb dialysis sol 2K+/3 Ca2+ 5,000 ML HE SCH ×6 (17:23→23:23)
[2020-06-23 17:30] LABS: ALBUMIN 1.5 G/DL (3.4-5.0); ANION GAP 11 (8-16); BLOOD UREA NITROGEN 23 MG/DL (7-18); BUN/CREATININE RATIO 11.9 (5.4-32.0); CALCIUM 7.3 MG/DL (8.5-10.1); CHLORIDE 106 MMOL/L (99-107); CREATININE 1.94 MG/DL (0.60-1.10); GLUCOSE 112 MG/DL (70-104); MAGNESIUM 1.6 MG/DL (1.5-2.4); PHOSPHORUS 6.1 MG/DL (2.3-4.5); POTASSIUM 4.5 MMOL/L (3.5-5.1); SODIUM 139 MMOL/L (135-145); TOTAL CARBON DIOXIDE 22.4 MMOL/L (24-32); eGFR 35 ML/MIN
[2020-06-23 17:51] LABS: BASOPHILS % (AUTO) 0.2 % (0-1); EOSINOPHILS # (AUTO) 0.4 X10'3 (0-0.9); EOSINOPHILS % (AUTO) 1.5 % (0-6); HEMATOCRIT 25.8 % (42.0-52.0); HEMOGLOBIN 8.6 g/dl (14.0-17.9); LYMPHOCYTES # (AUTO) 0.9 X10'3 (1.1-4.8); LYMPHOCYTES % (AUTO) 3.7 % (21-51); MEAN CORPUSCULAR HEMOGLOBIN 31.2 PG (27.0-31.0); MEAN CORPUSCULAR HGB CONC 33.4 g/dL (33.0-36.5); MEAN CORPUSCULAR VOLUME 93.3 FL (78-98); MEAN PLATELET VOLUME 9.2 FL (7.4-10.4); MONOCYTES # (AUTO) 0.6 X10'3 (0-0.9); MONOCYTES % (AUTO) 2.7 % (2-12); NEUTROPHILS # (AUTO) 21.5 X10'3 (1.8-7.7); NEUTROPHILS % (AUTO) 91.9 % (42-75); PLATELET COUNT 102 X10'3 (140-440); RED BLOOD COUNT 2.77 X10'6 (4.70-6.10); RED CELL DISTRIBUTION WIDTH 18.2 % (11.5-14.5); WHITE BLOOD COUNT 23.4 X10'3 (4.5-11.0)
--- NOTE | 2020-06-23 17:53 | NUR ---
order clarification on ultrafiltration rate per Dr. Noriega, start at 50/hr and work up to 200/hr if patient tolerates it
[2020-06-23 18:07] LABS: ALBUMIN 1.5 G/DL (3.4-5.0); ANION GAP 11 (8-16); BLOOD UREA NITROGEN 22 MG/DL (7-18); BUN/CREATININE RATIO 11.5 (5.4-32.0); CALCIUM 7.4 MG/DL (8.5-10.1); CHLORIDE 106 MMOL/L (99-107); CREATININE 1.91 MG/DL (0.60-1.10); GLUCOSE 113 MG/DL (70-104); MAGNESIUM 1.7 MG/DL (1.5-2.4); POTASSIUM 4.4 MMOL/L (3.5-5.1); PREALBUMIN 9.4 MG/DL (19-36); SODIUM 139 MMOL/L (135-145); eGFR 35 ML/MIN
[2020-06-23 18:24] LABS: PARTIAL THROMBOPLASTIN TIME 38 SECONDS (22-32)
[2020-06-23 18:30] LABS: PHOSPHORUS 5.9 MG/DL (2.3-4.5)
--- NOTE | 2020-06-23 18:30 | NUR ---
Patient in room CICU 2007. I have received report from PHAN Roca and had the opportunity to ask questions and assume patient care.
--- NOTE | 2020-06-23 18:44 | NUR ---
Problems reprioritized. Patient report given, questions answered & plan of care reviewed with Maite CHISHOLM.
--- NOTE | 2020-06-23 18:49 | NUR ---
Shift note Dr. Noriega by to round on patient 0830, stopped dobutamine, added a one time dose of 80mg lasix, 2 units ffp, cmp, mag, K, cpk, lactic, ion Ca and phos Q8, H/H Q4, also orders a CT chest/abd/pelvis, consent for swan introducer, Alonso and mesenteric angiogram, Dr. Noriega also waned d50 at 10ml/hr due to low blood sugars. Introducer placed at bedside RN and Velasquez assisted [address], accompanied by RT, Velasquez RN, heavy line technician. [address], IR staff waiting at room, patient to go to IR, IR staff requested that I as primary nurse should accompany due to high doses of vasopressors, RT accompanied and alli CHISHOLM as well 1330 Patient back from IR, per bedside report patient had a mesenteric artery stent placed and TDC to R groin.
[2020-06-23 19:09] LABS: ACANTHOCYTES 1+; ANISOCYTOSIS 1+; BURR CELLS 1+; NUCLEATED RED BLOOD CELLS 1 /100WBC (0-0); PLATELET ESTIMATE DECREASED; POLYCHROMASIA FEW; TOTAL CELLS COUNTED 100; TOXIC VACUOLATION 1+
[2020-06-23 19:33] LABS: BASOPHILS # (AUTO) 0.1 X10'3 (0-0.2); BASOPHILS % (AUTO) 0.2 % (0-1); EOSINOPHILS # (AUTO) 0.3 X10'3 (0-0.9); EOSINOPHILS % (AUTO) 1.2 % (0-6); HEMATOCRIT 28.3 % (42.0-52.0); HEMOGLOBIN 9.7 g/dl (14.0-17.9); LYMPHOCYTES % (AUTO) 3.5 % (21-51); MEAN CORPUSCULAR HEMOGLOBIN 31.4 PG (27.0-31.0); MEAN CORPUSCULAR VOLUME 92.2 FL (78-98); MEAN PLATELET VOLUME 9.1 FL (7.4-10.4); MONOCYTES # (AUTO) 0.7 X10'3 (0-0.9); MONOCYTES % (AUTO) 2.6 % (2-12); NEUTROPHILS # (AUTO) 25.7 X10'3 (1.8-7.7); NEUTROPHILS % (AUTO) 92.5 % (42-75); PLATELET COUNT 107 X10'3 (140-440); RED BLOOD COUNT 3.08 X10'6 (4.70-6.10); RED CELL DISTRIBUTION WIDTH 18.2 % (11.5-14.5)
[2020-06-23 19:39] LABS: WHITE BLOOD COUNT 27.8 X10'3 (4.5-11.0)
[2020-06-23 19:46] LABS: ALBUMIN 1.8 G/DL (3.4-5.0); ANION GAP 9 (8-16); BLOOD UREA NITROGEN 24 MG/DL (7-18); BUN/CREATININE RATIO 13.3 (5.4-32.0); CALCIUM 7.6 MG/DL (8.5-10.1); CHLORIDE 107 MMOL/L (99-107); CREATININE 1.81 MG/DL (0.60-1.10); GLUCOSE 112 MG/DL (70-104); MAGNESIUM 1.7 MG/DL (1.5-2.4); SODIUM 137 MMOL/L (135-145); TOTAL CARBON DIOXIDE 21.4 MMOL/L (24-32); eGFR 38 ML/MIN
[2020-06-23 19:47] LABS: PHOSPHORUS 5.5 MG/DL (2.3-4.5); POTASSIUM 4.3 MMOL/L (3.5-5.1)
[2020-06-23 19:49] LABS: NUCLEATED RED BLOOD CELLS 1 /100WBC (0-0); TOTAL CELLS COUNTED 100
[2020-06-23 19:50] LABS: ANISOCYTOSIS 2+; PLATELET ESTIMATE DECREASED
[2020-06-23] MEDS ORDERED: NORepinephrine 32 MG in Normal Saline 250ml IV soln IV SCH (22:10)
[2020-06-23 22:39] LABS: BASOPHILS % (AUTO) 0.1 % (0-1); HEMOGLOBIN 10.1 g/dl (14.0-17.9); MEAN PLATELET VOLUME 9.2 FL (7.4-10.4)
[2020-06-23 22:40] LABS: EOSINOPHILS # (AUTO) 0.4 X10'3 (0-0.9); EOSINOPHILS % (AUTO) 1.2 % (0-6); HEMATOCRIT 29.7 % (42.0-52.0); LYMPHOCYTES # (AUTO) 1.1 X10'3 (1.1-4.8); LYMPHOCYTES % (AUTO) 3.9 % (21-51); MEAN CORPUSCULAR HEMOGLOBIN 31.4 PG (27.0-31.0); MEAN CORPUSCULAR VOLUME 92.5 FL (78-98); MONOCYTES # (AUTO) 0.7 X10'3 (0-0.9); MONOCYTES % (AUTO) 2.3 % (2-12); NEUTROPHILS # (AUTO) 26.8 X10'3 (1.8-7.7); NEUTROPHILS % (AUTO) 92.5 % (42-75); PLATELET COUNT 120 X10'3 (140-440); RED BLOOD COUNT 3.22 X10'6 (4.70-6.10); RED CELL DISTRIBUTION WIDTH 18.4 % (11.5-14.5)
[2020-06-23 22:53] LABS: ALBUMIN 1.9 G/DL (3.4-5.0); ANION GAP 10 (8-16); BLOOD UREA NITROGEN 23 MG/DL (7-18); BUN/CREATININE RATIO 12.6 (5.4-32.0); CALCIUM 7.7 MG/DL (8.5-10.1); CHLORIDE 106 MMOL/L (99-107); CREATININE 1.82 MG/DL (0.60-1.10); GLUCOSE 107 MG/DL (70-104); MAGNESIUM 1.7 MG/DL (1.5-2.4); SODIUM 138 MMOL/L (135-145); TOTAL CARBON DIOXIDE 22.4 MMOL/L (24-32); eGFR 37 ML/MIN
[2020-06-23 22:54] LABS: PHOSPHORUS 5.5 MG/DL (2.3-4.5); POTASSIUM 4.5 MMOL/L (3.5-5.1)
[2020-06-23 23:01] LABS: ANISOCYTOSIS 2+; NUCLEATED RED BLOOD CELLS 1 /100WBC (0-0); PLATELET ESTIMATE DECREASED; TOTAL CELLS COUNTED 100
[2020-06-24] VITALS (24 sets, daily range): BP systolic 63–116; BP diastolic 28–59
[2020-06-24] MEDS: pantoprazole 40MG/NS 100ML BAG 100 ML IV SCH ×3 (00:32→10:59)
[2020-06-24] MEDS: bicarb dialysis sol 2K+/3 Ca2+ 5,000 ML HE SCH ×6 (01:22→11:23)
[2020-06-24] MEDS: hydrocortisone sod succ/PF 100mg/2ml inj. IV SCH ×2 (01:24→07:21)
[2020-06-24] MEDS: mineral oil/petrolatum ophthal oint EACHEYE SCH ×2 (01:24→07:21)
[2020-06-24] MEDS ORDERED: FENTANYL-0.9 % NACL/PF 100 ML IV PRN (02:40)
[2020-06-24 02:46] LABS: EOSINOPHILS # (AUTO) 0.2 X10'3 (0-0.9); HEMOGLOBIN 10.1 g/dl (14.0-17.9); MEAN PLATELET VOLUME 9.5 FL (7.4-10.4); NEUTROPHILS # (AUTO) 26.2 X10'3 (1.8-7.7)
[2020-06-24 02:50] LABS: BASOPHILS % (AUTO) 0.1 % (0-1); EOSINOPHILS % (AUTO) 0.8 % (0-6); HEMATOCRIT 30.2 % (42.0-52.0); LYMPHOCYTES # (AUTO) 1.4 X10'3 (1.1-4.8); MEAN CORPUSCULAR HGB CONC 33.5 g/dL (33.0-36.5); MEAN CORPUSCULAR VOLUME 92.6 FL (78-98); MONOCYTES # (AUTO) 0.7 X10'3 (0-0.9); MONOCYTES % (AUTO) 2.5 % (2-12); NEUTROPHILS % (AUTO) 91.6 % (42-75); PLATELET COUNT 123 X10'3 (140-440); RED BLOOD COUNT 3.26 X10'6 (4.70-6.10); RED CELL DISTRIBUTION WIDTH 18.5 % (11.5-14.5)
[2020-06-24 02:52] LABS: WHITE BLOOD COUNT 28.6 X10'3 (4.5-11.0)
[2020-06-24 02:57] LABS: PARTIAL THROMBOPLASTIN TIME 32 SECONDS (22-32)
[2020-06-24 03:07] LABS: ANISOCYTOSIS 2+; NUCLEATED RED BLOOD CELLS 1 /100WBC (0-0); PLATELET ESTIMATE DECREASED; TOTAL CELLS COUNTED 100
[2020-06-24 03:10] LABS: ALBUMIN 1.8 G/DL (3.4-5.0); ALKALINE PHOSPHATASE 132 IU/L (46-116); ANION GAP 12 (8-16); BILIRUBIN,TOTAL 6.2 MG/DL (0.1-1.0); BLOOD UREA NITROGEN 23 MG/DL (7-18); BUN/CREATININE RATIO 12.4 (5.4-32.0); CALCIUM 7.7 MG/DL (8.5-10.1); CHLORIDE 105 MMOL/L (99-107); CREATININE 1.86 MG/DL (0.60-1.10); GLUCOSE 109 MG/DL (70-104); LIPASE 335 U/L (73-393); MAGNESIUM 1.7 MG/DL (1.5-2.4); SODIUM 137 MMOL/L (135-145); TOTAL CARBON DIOXIDE 20.4 MMOL/L (24-32); VANCOMYCIN,RANDOM 20.5 UG/ML; eGFR 37 ML/MIN
[2020-06-24 03:29] LABS: ALBUMIN/GLOBULIN RATIO 0.7 (1.1-1.5); PHOSPHORUS 5.2 MG/DL (2.3-4.5); POTASSIUM 4.6 MMOL/L (3.5-5.1); TOTAL PROTEIN 4.4 G/DL (6.4-8.2)
[2020-06-24 03:47] LABS: ALANINE AMINOTRANSFERASE > 7000 U/L (12-78); ASPARTATE AMINO TRANSFERASE > 7000 U/L (10-37)
[2020-06-24 04:01] LABS: ABG HCO3 17.4 mmol/L (22.0-26.0); ABG OXYGEN SATURATION 94.2 % (94-97); ABG PO2 (T) 77.4 mmHg (75.0-100.0); FCOHb 0.3 % (0.0-3.9); FMetHb 0.1 % (0.0-1.5); FO2Hb 93.8 % (94-97); PATIENT TEMPERATURE 37.2; PEEP 5 cm H2O; RESPIRATORY RATE 16 b/min; TIDAL VOLUME 450 mL; TOTAL HEMOGLOBIN 10.9 G/dl (14.0-18.0)
[2020-06-24] MEDS: normal saline 1000ml 1,000 ML IV SCH (04:44)
--- NOTE | 2020-06-24 06:21 | NUR ---
Problems reprioritized. Patient report given, questions answered & plan of care reviewed with PHAN Roca.
--- NOTE | 2020-06-24 06:30 | NUR ---
Patient in room CICU 2007. I have received report from PRASHANTH CHISHOLM and had the opportunity to ask questions and assume patient care. PT HAS LEVOPHED QUAD STRENGTH RUNNING AT 0.3, FENTANYL AT 35, VERSED AT 2, AND PROTONIX. VSS. PT RESTING COMFORTABLY IN BED.
[2020-06-24] MEDS: multivitamins, therapeutics tablet PO SCH (07:21)
[2020-06-24] MEDS: thiamine 100mg tablet PO SCH (07:21)
[2020-06-24] MEDS: lactobacillus rhamnosus 10,000 MMU CELLS/CAPSULE PO SCH (07:21)
[2020-06-24] MEDS: K and/or MAG REPLACEMENT MC SCH (07:21)
[2020-06-24] MEDS: piperacillin/tazo 3.375gm/50ml 50 ML IV SCH (07:21)
[2020-06-24] MEDS: folic acid 1mg tablet PO SCH (07:21)
[2020-06-24] MEDS: amLODIPine 5mg tablet PO SCH (07:22)
[2020-06-24] MEDS: cloNIDine 0.1 mg tablet PO SCH (07:22)
[2020-06-24] MEDS: lisinopril 20mg tablet PO SCH (07:22)
[2020-06-24] MEDS: propranolol 10mg tablet PO SCH (07:22)
[2020-06-24] MEDS: tamsulosin 0.4mg capsule PO SCH (07:22)
[2020-06-24 07:35] LABS: BASOPHILS # (AUTO) 0.1 X10'3 (0-0.2); BASOPHILS % (AUTO) 0.2 % (0-1); EOSINOPHILS # (AUTO) 0.1 X10'3 (0-0.9); EOSINOPHILS % (AUTO) 0.2 % (0-6); HEMATOCRIT 30.8 % (42.0-52.0); HEMOGLOBIN 10.3 g/dl (14.0-17.9); MEAN CORPUSCULAR HEMOGLOBIN 31.1 PG (27.0-31.0)
[2020-06-24 07:37] LABS: LYMPHOCYTES # (AUTO) 1.9 X10'3 (1.1-4.8); LYMPHOCYTES % (AUTO) 5.9 % (21-51); MEAN CORPUSCULAR HGB CONC 33.2 g/dL (33.0-36.5); MEAN CORPUSCULAR VOLUME 93.6 FL (78-98); MEAN PLATELET VOLUME 9.5 FL (7.4-10.4); MONOCYTES % (AUTO) 3.2 % (2-12); NEUTROPHILS # (AUTO) 28.9 X10'3 (1.8-7.7); NEUTROPHILS % (AUTO) 90.5 % (42-75); PLATELET COUNT 122 X10'3 (140-440); RED BLOOD COUNT 3.29 X10'6 (4.70-6.10); RED CELL DISTRIBUTION WIDTH 19.2 % (11.5-14.5)
[2020-06-24 07:40] LABS: WHITE BLOOD COUNT 31.9 X10'3 (4.5-11.0)
[2020-06-24 08:04] LABS: ALBUMIN 1.9 G/DL (3.4-5.0); ANION GAP 10 (8-16); BLOOD UREA NITROGEN 24 MG/DL (7-18); BUN/CREATININE RATIO 12.4 (5.4-32.0); CALCIUM 7.7 MG/DL (8.5-10.1); CHLORIDE 105 MMOL/L (99-107); CREATININE 1.94 MG/DL (0.60-1.10); GLUCOSE 106 MG/DL (70-104); MAGNESIUM 1.8 MG/DL (1.5-2.4); SODIUM 137 MMOL/L (135-145); TOTAL CARBON DIOXIDE 22.4 MMOL/L (24-32); eGFR 35 ML/MIN
[2020-06-24 08:07] LABS: PHOSPHORUS 5.2 MG/DL (2.3-4.5); POTASSIUM 4.6 MMOL/L (3.5-5.1)
[2020-06-24] MEDS ORDERED: VANCOMYCIN 1,500MG inj. 1,500 MG in normal saline 500ml IV soln 500 ML IV PRN (08:20)
--- NOTE | 2020-06-24 08:27 | NUR ---
Patient in room CICU 2007. I have received report from Maite CHISHOLM and had the opportunity to ask questions and assume patient care. Patient laying in bed with eyes closed, easily aroused to name or pain, patient intubated fio2 35% peep of 5 sating 92-96%, drips infusing as ordered, patient has R subclavian central line, R groin TDC with CVVH running, R groin artline, Left groin swan introducer. Vital signs stable will continue to monitor
[2020-06-24 08:35] LABS: ANISOCYTOSIS 2+; NUCLEATED RED BLOOD CELLS 2 /100WBC (0-0); PLATELET ESTIMATE DECREASED; TOTAL CELLS COUNTED 100
[2020-06-24] MEDS ORDERED: NORepinephrine 8mg/ 250ml NS 250 ML IV PRN (09:39)
[2020-06-24] MEDS ORDERED: midazolam 100mg in NS 100ml 100 ML IV PRN (09:42)
[2020-06-24 11:45] LABS: OXYGEN SATURATION (MIXED VEN) 48.3 % (60-80); PO2 MIXED VENOUS (TEMP COR) 27.6 mmHg (35-46)
[2020-06-24] MEDS ORDERED: vancomycin/NS 1 GM ADD-VANTAGE 250 ML IV PRN (11:56)
[2020-06-24] MEDS ORDERED: albumin (human) 25% 100 ML IV solution IV SCH (12:00)
[2020-06-24] MEDS ORDERED: vancomycin inj 500 MG in normal saline 100ml IV soln 100 ML IV PRN (12:00)
[2020-06-24] MEDS ORDERED: heparin 1,000 units/ml 10ml inj HE ONE ×2 (12:20)
[2020-06-24] MEDS ORDERED: cefepime 1GM in D5W 50mL IVPB IV SCH (13:00)
--- NOTE | 2020-06-24 14:32 | NUR ---
NO VENT CHECK DONE ON PT, SPOKE WITH RN, PT'S FAMILY AT BEDSIDE , DECISION FOR COMFORT CARE BEING MADE. RT WILL CONTINUE TO FOLLOW UP WITH RN AND MONITOR. Addendum: 06/24/20 at 1434 by Charisse Faye RT Amended: Links added.
[2020-06-24] MEDS ORDERED: LORazepam 2 mg/ml vial IV PRN (17:15)
--- NOTE | 2020-06-24 17:15 | NUR ---
Per Dr. Noriega may extubate patient to comfort care if family is agreeable
--- NOTE | 2020-06-24 17:25 | NUR ---
Patient extubated by RT, family at bedside,
[2020-06-24] MEDS: morphine 10mg/ml inj. IV PRN ×4 (18:00→21:56)
--- NOTE | 2020-06-24 18:28 | NUR ---
Problems reprioritized. Patient report given, questions answered & plan of care reviewed with Thea CHISHOLM.
--- NOTE | 2020-06-24 18:30 | NUR ---
Patient in room CICU 2007. I have received report from PHAN Roca and had the opportunity to ask questions and assume patient care.
[2020-06-24] MEDS ORDERED: VANCOMYCIN 1,500MG inj. 1,500 MG in normal saline 500ml IV soln 300 ML IV SCH (19:00)
[2020-06-25] VITALS: BP 61/27
[2020-06-25] MEDS: morphine 10mg/ml inj. IV PRN ×2 (00:01→01:51)
[2020-06-25 01:00] VITALS: BP 59/27
[2020-06-25 02:00] VITALS: BP 61/30
--- NOTE | 2020-06-25 02:11 | NUR ---
RN IS TO DOCUMENT YES TO ALL APPLICABLE AREAS Pronouncement of : 1. Time Physician Notified: [id number] 2. Date of :06-25-20 3. Time of : 210 4. DNR/Withdraw life support documented:Yes 5. Monitor strip has been placed on chart:Yes 6. Assessment process is of one-minute duration and includes following criteria: a) Patient is unresponsive to all stimuli: Yes b) Pupils fixed and non-reactive:Yes c) Auscultation of precordium reveals absence of heart tones:Yes d) Auscultation of lungs reveals absence of breath sounds:Yes e) Absence of blood pressure / all vital signs:Yes f) QRS complexes are not present on monitor / EKG strip:Yes g) Pacer spikes without capture:N/A 4. Comments: Destiny Armstrong (Spouse) witnessed at bedside.
[2020-06-25] MEDS ORDERED: VANCOMYCIN LEVEL IV SCH (03:00)
[2020-06-27] MEDS ORDERED: VANCOMYCIN LEVEL IV ONE (18:30)
== END 2020-06-25 05:37 | disposition expired | DRG 871 ==
LOC: ER 21:13 → ED HOLD 23:56 → SUR 3N 06-18 01:27 → CICU 2S 06-23 00:52
PROVIDERS: ADMIT Family Medicine; ATTEND Internal Medicine
PROC: 5A12012 Performance of Cardiac Output, Single, Manual (ICD-10-PCS; principal; 2020-06-23)
PROC: 5A1945Z Respiratory Ventilation, 24-96 Consecutive Hours (ICD-10-PCS; 2020-06-23)
PROC: 30233K1 Transfusion of Nonautologous Frozen Plasma into Peripheral Vein, Percutaneous Approach (ICD-10-PCS; 2020-06-23)
PROC: 30233N1 Transfusion of Nonautologous Red Blood Cells into Peripheral Vein, Percutaneous Approach (ICD-10-PCS; 2020-06-23)
PROC: 0BH17EZ Insertion of Endotracheal Airway into Trachea, Via Natural or Artificial Opening (ICD-10-PCS; 2020-06-23)
PROC: B41J1ZZ Fluoroscopy of Other Lower Arteries using Low Osmolar Contrast (ICD-10-PCS; 2020-06-23)
PROC: B32T1ZZ Computerized Tomography (CT Scan) of Left Pulmonary Artery using Low Osmolar Contrast (ICD-10-PCS; 2020-06-23)
PROC: B3201ZZ Computerized Tomography (CT Scan) of Thoracic Aorta using Low Osmolar Contrast (ICD-10-PCS; 2020-06-23)
PROC: B32S1ZZ Computerized Tomography (CT Scan) of Right Pulmonary Artery using Low Osmolar Contrast (ICD-10-PCS; 2020-06-23)
DX: A41.9 Sepsis, unspecified organism (principal); K85.90 Acute pancreatitis without necrosis or infection, unspecified; J96.00 Acute respiratory failure, unspecified whether with hypoxia or hypercapnia; E87.1 Hypo-osmolality and hyponatremia; K56.7 Ileus, unspecified; N17.9 Acute kidney failure, unspecified; K92.2 Gastrointestinal hemorrhage, unspecified; S36.892A Contusion of other intra-abdominal organs, initial encounter; R57.9 Shock, unspecified; I46.9 Cardiac arrest, cause unspecified; D72.825 Bandemia; I10 Essential (primary) hypertension; I72.8 Aneurysm of other specified arteries; J44.9 Chronic obstructive pulmonary disease, unspecified; G89.29 Other chronic pain; M54.2 Cervicalgia; M54.9 Dorsalgia, unspecified; G56.00 Carpal tunnel syndrome, unspecified upper limb; F10.20 Alcohol dependence, uncomplicated; Y90.9 Presence of alcohol in blood, level not specified; I11.9 Hypertensive heart disease without heart failure; X58.XXXA Exposure to other specified factors, initial encounter; Z87.11 Personal history of peptic ulcer disease; Z90.49 Acquired absence of other specified parts of digestive tract; Z82.49 Family history of ischemic heart disease and other diseases of the circulatory system; Z80.42 Family history of malignant neoplasm of prostate; Y93.89 Activity, other specified; Y92.89 Other specified places as the place of occurrence of the external cause; Y99.8 Other external cause status
CPT/HCPCS: 36245; 36415; 36430; 36556; 36600; 37244; 71045; 71260; 74018; 74176; 74177; 75726; 77001; 80048; 80053; 80061; 80069; 80202; 81001; 81003; 82330; 82550; 82803; 82810; 82948; 83036; 83605; 83690; 83735; 84100; 84132; 84134; 84145; 84484; 85018; 85025; 85027; 85610; 85730; 86885; 86900; 86901; 86920; 87040; 87070; 87081; 93005; 93306; 93308; 94002; 94003; 94640; 94760; 96365; 96367; 96375; 96376; 99152; 99153; 99285; C1725; C1769; C1874; C1894; C9113; E1594; G0378; J0171; J0360; J0696; J1170; J1250; J1644; J1650; J1720; J1940; J2270; J2405; J2543; J3010; J3370; J3411; J3490; J7030; J7040; J7050; J7060; P9016; P9047; P9059; Q9963; Q9967